=== PATIENT | female | born 1990 | race Caucasian/White ===

== ENCOUNTER 2016-11-22 01:26 | Emergency (ER) | payer BC, OTHER ==
[~2016-11-22] VITALS: Ht 162.6 cm; Wt 61.4 kg
[2016-11-22 01:38] VITALS: BP 111/73; PULSE 82; RESP 18; TEMP 97.8; O2SAT 100
--- NOTE | 2016-11-22 03:00 | PD ---
HPI Chief Complaint: Pain: Acute or Chronic Time Seen by Provider: 02:48 Travel History International Travel<30 days: No Contact w/Intl Traveler<30days: No Traveled to known affect area: No History of Present Illness HPI The patient is a 26-year-old female that has been working out and complains of bilateral triceps and pectoralis muscle pain. She states it hurts too much to lift her arms up. She denies any bloody or dark urines. She denies any discoloration on the skin around these muscles and she denies any fever. She has been drinking increased liquids. [facility] Past Medical History Medical History: Denies Significant Hx Tetanus Vaccination: < 5 Years Influenza Vaccination: No ?: Not Social History Alcohol Use: No Tobacco Use: No Substance Use: No Allergies-Medications (Allergen,Severity, Reaction): Coded Allergies: Septra (Verified Allergy, Severe, 01/09/16) Amoxil (Verified Allergy, Mild, RASH, 01/09/16) Sulfa (Verified Allergy, Mild, RASH, 01/09/16) Uncoded Allergies: MORPHINE (Allergy, Severe, SWELLING, 10/30/11) BACTRIM (Allergy, Mild, RASH, 10/30/11) Reported Meds & Prescriptions Reported Meds & Active Scripts Active Ibuprofen 600 Mg Tab 600 Mg PO TID Review of Systems Except as stated in HPI: all other systems reviewed are Neg Physical Exam Narrative GENERAL: Well-nourished, well-developed patient in minimal apparent distress with her bilateral trapezius/pectoralis muscle pain. Her vital signs are normal. SKIN: Warm and dry. No ecchymotic areas are seen on the skin and there is no erythema over the skin. HEAD: Normocephalic. EYES: No scleral icterus. No injection or drainage. NECK: Supple, trachea midline. No JVD or lymphadenopathy. CARDIOVASCULAR: Regular rate and rhythm without murmurs, gallops, or rubs. RESPIRATORY: Breath sounds equal bilaterally. No accessory muscle use. GASTROINTESTINAL: Abdomen soft, non-tender, nondistended. MUSCULOSKELETAL: No cyanosis, or edema. There is tenderness to direct palpation over the bilateral trapezius and bilateral pectoralis. The patient can lift her arms up, it is simply painful. BACK: Nontender without obvious deformity. No CVA tenderness. Data Data Last Documented VS Vital Signs Date Time Temp Pulse Resp B/P Pulse Ox O2 Delivery O2 Flow Rate FiO2 11/22/16 01:57 82 18 11/22/16 01:38 97.8 111/73 100 Orders Ua Includes Microscopic (11/22/16 03:00) Ketorolac Inj (Toradol Inj) (11/22/16 03:15) MDM Medical Decision Making Medical Screen Exam Complete: Yes Emergency Medical Condition: Yes Medical Record Reviewed: Yes Differential Diagnosis Muscle strain, rhabdomyolysis, Narrative Course The patient has muscle strain of the pectoralis and triceps muscles. At this time there is no evidence of any rhabdomyolysis. The patient should increase liquid intake, use a heating pad on as well as setting an interpose a towel between her skin and the pad and rest until the pain goes away. If she develops redness in her urine she should return immediately for reevaluation. Diagnosis Primary Impression: Muscle strain, upper arm Additional Impression: Pectoralis muscle strain Additional Instructions: Rest, use a heating pad on its lowest setting an interposed a towel between your skin and the pad. Drink plenty of liquids. If you get red-looking urine, return to the emergency department. Med/Other Pt SpecificInfo: Prescription(s) given Scripts Ibuprofen 600 Mg [id number] Mg PO TID #45 TAB Ref 0 Prov:Mikey Apodaca MD 11/22/16 Disposition: 01 DISCHARGE HOME Condition: Stable Mikey Apodaca MD Nov 22, 2016 03:00
[2016-11-22] MEDS ORDERED: IBUP-232 PO (03:03)
[2016-11-22] MEDS ORDERED: KETOROLAC TROMETHAMINE 60 MG/2 ML (IM) VIAL IM ONE (03:15)
[2016-11-22 03:16] VITALS: BP 114/72; PULSE 78; RESP 18; O2SAT 99
[2016-11-22 03:33] LABS: BLOOD, URINE NEG (NEG); GLUCOSE,URINE NEG (NEG); KETONE, URINE NEG (NEG); NITRITE,URINE NEG (NEG); PH, URINE 6.5 (5.0-8.5)
[2016-11-22 03:39] LABS: BACTERIA, URINE MANY /hpf; RBC, URINE 0-2 /hpf (0-3); SQUAMOUS EPITHELIAL CELL URINE > 8 /hpf (0-5); URINE COLOR STRAW (YELLW/STRAW)
== END 2016-11-22 03:17 | disposition home or self-care (01) ==
LOC: PHED 01:26
DX: S46.312A Strain of muscle, fascia and tendon of triceps, left arm, initial encounter (principal); S46.311A Strain of muscle, fascia and tendon of triceps, right arm, initial encounter; S29.011A Strain of muscle and tendon of front wall of thorax, initial encounter; Y93.B9 Activity, other involving muscle strengthening exercises
CPT/HCPCS: 81001; 99283

== ENCOUNTER 2018-01-20 01:54 | Emergency (ER) | payer BC ==
[~2018-01-20] VITALS: Ht 162.6 cm; Wt 65.1 kg
[~2018-01-20 01:54] MED LIST: IBUP-232 PO
[2018-01-20 01:58] VITALS: BP 125/68; PULSE 61; RESP 18; TEMP 97.5; O2SAT 100
--- NOTE | 2018-01-20 02:27 | PD ---
HPI Chief Complaint: Skin Problem Time Seen by Provider: 02:22 Travel History International Travel<30 days: No Contact w/Intl Traveler<30days: No Traveled to known affect area: No History of Present Illness HPI The patient is a 28-year-old female that this morning developed a rash all over body. She is not on any new medications and has no idea what caused this rash. She has multiple allergies which include sulfa, penicillins and morphine. She denies any wheezing or shortness of breath. She denies any possibility of . PFSH Past Medical History Tetanus Vaccination: > 5 Years Influenza Vaccination: No ?: Not Social History Alcohol Use: No Tobacco Use: No Substance Use: No Allergies-Medications (Allergen,Severity, Reaction): Coded Allergies: sulfamethoxazole (Unverified Allergy, Severe, 05/27/17) trimethoprim (Unverified Allergy, Severe, 05/27/17) Sulfa (Sulfonamide Antibiotics) (Unverified Allergy, Mild, RASH, 05/27/17) amoxicillin (Unverified Allergy, Mild, RASH, 05/27/17) Uncoded Allergies: MORPHINE (Allergy, Severe, SWELLING, 10/30/11) BACTRIM (Allergy, Mild, RASH, 10/30/11) Reported Meds & Prescriptions Reported Meds & Active Scripts Active Prednisone 20 Mg Tab 20 Mg PO BID 6 Days Zantac (Ranitidine HCl) 150 Mg Tab 150 Mg PO BID Ibuprofen 600 Mg Tab 600 Mg PO TID Review of Systems Except as stated in HPI: all other systems reviewed are Neg Physical Exam Narrative GENERAL: Well-nourished, well-developed patient in moderate apparent distress with her generalized skin rash. Her vital signs are normal. SKIN: Focused skin assessment warm/dry. There is an erythematous, confluent, slightly papular skin rash distributed on the entire body but most prominent over the thighs and abdomen. HEAD: Normocephalic. EYES: No scleral icterus. No injection or drainage. NECK: Supple, trachea midline. No JVD or lymphadenopathy. CARDIOVASCULAR: Regular rate and rhythm without murmurs, gallops, or rubs. RESPIRATORY: Breath sounds equal bilaterally. No accessory muscle use. Lungs clear to auscultation bilaterally. GASTROINTESTINAL: Abdomen soft, non-tender, nondistended. MUSCULOSKELETAL: No cyanosis, or edema. BACK: Nontender without obvious deformity. No CVA tenderness. Data Data Last Documented VS Vital Signs Date Time Temp Pulse Resp B/P (MAP) Pulse Ox O2 Delivery O2 Flow Rate FiO2 01/20/18 02:46 74 16 131/67 (88) 100 Room Air 01/20/18 01:58 97.5 Orders Orders Ecg Monitoring (01/20/18 02:22) Iv Access Insert/Monitor (01/20/18 02:22) Oximetry (01/20/18 02:22) Diphenhydramine Inj (Benadryl Inj) (01/20/18 02:30) Methylprednisolone So Succ Inj (Solumedr (01/20/18 02:30) Famotidine Inj (Pepcid Inj) (01/20/18 02:30) Sodium Chloride 0.9% Flush (Ns Flush) (01/20/18 02:30) Epinephrine (1:1000) Inj (Adrenalin (1:1 (01/20/18 02:30) MDM Medical Decision Making Medical Screen Exam Complete: Yes Emergency Medical Condition: Yes Medical Record Reviewed: Yes Differential Diagnosis Allergic reaction, anaphylactic reaction, cellulitis-unlikely, contact dermatitis-unlikely Narrative Course The patient has a generalized allergic reaction. It is now 0425 and the rash has faded and she feels much better and wants to go home. Plan: The patient will take [id number] Benadryl 25 mg 3 or 4 times daily and is given prescriptions for Zantac 150 mg twice daily as well as prednisone 20 mg twice daily for 6 days. She is to follow-up with her primary care physician. Diagnosis Primary Impression: Allergic reaction Additional Instructions: The prednisone is taken 1 tablet twice daily for 6 days. Take the Benadryl 1 tablet 3 or 4 times daily until the rash subsides. The Zantac is 1 tablet twice daily. Med/Other Pt SpecificInfo: Prescription(s) given Scripts Prednisone (Prednisone) 20 Mg Tab 20 MG PO BID for 6 Days, #12 TAB 0 Refills Prov: Mikey Apodaca MD 01/20/18 Ranitidine (Zantac) 150 Mg Tab 150 MG PO BID, #30 TAB 0 Refills Prov: Mikey Apodaca MD 01/20/18 Disposition: 01 DISCHARGE HOME Condition: Stable Mikey Apodaca MD Jan 20, 2018 02:27
[2018-01-20] MEDS ORDERED: EPINEPHrine HCL (1:1000) 1 MG/ML VIAL IM ONE (02:30)
[2018-01-20] MEDS ORDERED: diphenhydrAMINE HCL 50 MG/ML VIAL IVP ONE (02:30)
[2018-01-20] MEDS ORDERED: methylPREDNISolone SOD SUCC 125 MG/2 ML VIAL IV PUSH ONE (02:30)
[2018-01-20] MEDS ORDERED: FAMOTIDINE 20 MG/2 ML VIAL IV PUSH ONE (02:30)
[2018-01-20] MEDS ORDERED: SODIUM CHLORIDE 0.9% FLUSH 10 ML FLUSH IV FLUSH PRN (02:30)
[2018-01-20 02:44] VITALS: RESP 18; O2SAT 100
[2018-01-20 02:46] VITALS: BP 131/67; PULSE 74; RESP 16; O2SAT 100
[2018-01-20] MEDS ORDERED: PRED20 PO (04:29)
[2018-01-20] MEDS ORDERED: ZANT150T2 PO (04:29)
[2018-01-21] MEDS ORDERED: PRED50 PO (00:30)
== END 2018-01-20 05:05 | disposition home or self-care (01) ==
LOC: PHED 01:54
DX: T78.40XA Allergy, unspecified, initial encounter (principal); R21 Rash and other nonspecific skin eruption; Z88.2 Allergy status to sulfonamides; Z88.0 Allergy status to penicillin; Z88.5 Allergy status to narcotic agent; Z88.8 Allergy status to other drugs, medicaments and biological substances; Z79.899 Other long term (current) drug therapy
CPT/HCPCS: 96372; 96374; 96375; 99284; J0171; J1200; J2930

== ENCOUNTER 2018-01-20 23:20 | Emergency (ER) | payer BC ==
[~2018-01-20] VITALS: Ht 162.6 cm; Wt 64.5 kg
[~2018-01-20 23:20] MED LIST changes: +PRED20 PO; +ZANT150T2 PO
[2018-01-20 23:26] VITALS: BP 124/67; PULSE 105; O2SAT 100
[2018-01-20 23:35] VITALS: TEMP 97.2
--- NOTE | 2018-01-20 23:41 | PD ---
HPI Chief Complaint: Skin Problem Time Seen by Provider: 23:29 Travel History International Travel<30 days: No Contact w/Intl Traveler<30days: No Traveled to known affect area: No History of Present Illness HPI The patient is a 28-year-old female that was here for an allergic rash yesterday and was given epinephrine, prescription for Zantac and was told to take Benadryl and was given a prescription for prednisone. She received 125 Solu-Medrol IV yesterday. She got better but then at 1:30 PM today the rash return. The rash has subsequently got worse. It covers her back, abdomen and both thighs and extremities now. She denies any wheezing. She denies any syncopal or near syncopal spells. She is known to be allergic to penicillin and sulfa. She denies any fever, dysuria, frequency or urgency. [facility] Social History Alcohol Use: No Tobacco Use: No Substance Use: No Allergies-Medications (Allergen,Severity, Reaction): Coded Allergies: sulfamethoxazole (Unverified Allergy, Severe, 05/27/17) trimethoprim (Unverified Allergy, Severe, 05/27/17) Sulfa (Sulfonamide Antibiotics) (Unverified Allergy, Mild, RASH, 05/27/17) amoxicillin (Unverified Allergy, Mild, RASH, 05/27/17) Uncoded Allergies: MORPHINE (Allergy, Severe, SWELLING, 10/30/11) BACTRIM (Allergy, Mild, RASH, 10/30/11) Reported Meds & Prescriptions Reported Meds & Active Scripts Active Prednisone 50 Mg Tab 50 Mg PO BID Prednisone 20 Mg Tab 20 Mg PO BID 6 Days Zantac (Ranitidine HCl) 150 Mg Tab 150 Mg PO BID Ibuprofen 600 Mg Tab 600 Mg PO TID Review of Systems Except as stated in HPI: all other systems reviewed are Neg Physical Exam Narrative GENERAL: The patient is alert, oriented 3 in moderate apparent distress with her pruritic rash. The vital signs show heart rate of 105 but are otherwise normal. SKIN: Focused skin assessment warm/dry. There is an erythematous, slightly papular, confluent rash distributed on the anterior abdomen, back, both thighs and both legs. HEAD: Atraumatic. Normocephalic. EYES: Pupils equal and round. No scleral icterus. No injection or drainage. ENT: No nasal bleeding or discharge. Mucous membranes pink and moist. NECK: Trachea midline. No JVD. CARDIOVASCULAR: Regular rate and rhythm. No murmur appreciated. RESPIRATORY: No accessory muscle use. Clear to auscultation. Breath sounds equal bilaterally. GASTROINTESTINAL: Abdomen soft, non-tender, nondistended. Hepatic and splenic margins not palpable. MUSCULOSKELETAL: No obvious deformities. No clubbing. No cyanosis. No edema. NEUROLOGICAL: Awake and alert. No obvious cranial nerve deficits. Motor grossly within normal limits. Normal speech. PSYCHIATRIC: Appropriate mood and affect; insight and judgment normal. Data Data Last Documented VS Vital Signs Date Time Temp Pulse Resp B/P (MAP) Pulse Ox O2 Delivery O2 Flow Rate FiO2 01/21/18 00:22 16 100 Room Air 01/21/18 00:02 80 01/20/18 23:35 97.2 Orders Orders Ecg Monitoring (01/20/18 23:34) Oximetry (01/20/18 23:34) Prednisone (Deltasone) (01/20/18 23:45) Epinephrine (1:1000) Inj (Adrenalin (1:1 (01/20/18 23:45) MDM Medical Decision Making Medical Screen Exam Complete: Yes Emergency Medical Condition: Yes Medical Record Reviewed: Yes Differential Diagnosis Allergic rash, contact dermatitis-unlikely, occult infection Narrative Course It is now 1251 and the patient does feel better and the rash is fading. She will be given a stronger course of prednisone and she needs to follow-up with an academic advising director. Apparently, she is probably exposed continually to the allergen. It may be molds since she is allergic to penicillin. Impression: Allergic reaction Additional Instructions: As we discussed, the prednisone is taken 1 tablet twice daily for 4 days followed by 1 tablet once daily for 4 days. Follow-up with an academic advising director as soon as possible. Med/Other Pt SpecificInfo: Prescription(s) given Scripts Prednisone (Prednisone) 50 Mg Tab 50 MG PO BID for X 4 days than daily X 4 days, #12 TAB 0 Refills Prov: Mikey Apodaca MD 01/21/18 Disposition: 01 DISCHARGE HOME Condition: Stable Mikey Apodaca MD Jan 20, 2018 23:41
[2018-01-20] MEDS ORDERED: EPINEPHrine HCL (1:1000) 1 MG/ML VIAL IM ONE (23:45)
[2018-01-20] MEDS ORDERED: predniSONE 20 MG TAB PO ONE (23:45)
[2018-01-21 00:02] VITALS: PULSE 80
[2018-01-21 00:22] VITALS: RESP 16; O2SAT 100
[2018-01-21] MEDS ORDERED: PRED50 PO (00:30)
[2018-01-21 01:13] VITALS: BP 106/51
== END 2018-01-21 01:17 | disposition home or self-care (01) ==
LOC: PHED 23:20
DX: T78.40XA Allergy, unspecified, initial encounter (principal); R21 Rash and other nonspecific skin eruption; Z88.0 Allergy status to penicillin; Z88.2 Allergy status to sulfonamides; Z88.8 Allergy status to other drugs, medicaments and biological substances; Z79.899 Other long term (current) drug therapy
CPT/HCPCS: 96372; 99283; J0171; J7512